=== PATIENT | male | born 2000 | race African-American/Black ===

== ENCOUNTER 2020-01-13 10:13 | Emergency (ER) | payer MEDICAID ==
[~2020-01-13] VITALS: Ht 180.3 cm; Wt 104.0 kg
[2020-01-13] MEDS ORDERED: IBUPROFEN 600MG TABLET PO ONE (12:45)
[2020-01-13 13:24] VITALS: BP 146/85
== END 2020-01-13 13:25 | disposition home or self-care (01) ==
LOC: ER 10:40
DX: R51.9 Headache, unspecified (principal); F90.9 Attention-deficit hyperactivity disorder, unspecified type; Z87.828 Personal history of other (healed) physical injury and trauma
CPT/HCPCS: 99282